=== PATIENT | female | born 1975 | race Caucasian/White ===

== ENCOUNTER 2017-10-24 21:55 | Emergency (ER) | payer SELFPAY ==
[~2017-10-24] VITALS: Ht 157.5 cm; Wt 110.0 kg
[2017-10-24 21:55] VITALS: BP 163/99
[2017-10-24] MEDS ORDERED: anxiety med PO (22:05)
[2017-10-24] MEDS ORDERED: thyroid medicine PO (22:05)
[2017-10-24] MEDS ORDERED: blood pressure med PO (22:05)
[2017-10-24] MEDS ORDERED: ADV100INH INH (22:07)
== END 2017-10-24 22:37 | disposition left against medical advice (07) ==
LOC: M ED 21:55
DX: Z53.29 Procedure and treatment not carried out because of patient's decision for other reasons (principal)

== ENCOUNTER 2018-04-12 21:11 | Emergency (ER) | payer OTHER, MEDICAID | END 2018-04-12 23:06 | disposition home or self-care (01) | LOC: M ED 21:11 | DX: M17.11 Unilateral primary osteoarthritis, right knee (principal); M25.561 Pain in right knee; X58.XXXA Exposure to other specified factors, initial encounter; Y92.099 Unspecified place in other non-institutional residence as the place of occurrence of the external cause; I10 Essential (primary) hypertension; J44.9 Chronic obstructive pulmonary disease, unspecified; F17.200 Nicotine dependence, unspecified, uncomplicated; Z79.899 Other long term (current) drug therapy; Z88.6 Allergy status to analgesic agent; Z88.5 Allergy status to narcotic agent; Z91.040 Latex allergy status | CPT/HCPCS: 73564 ==

== ENCOUNTER 2018-10-08 14:27 | Emergency (ER) | payer OTHER | END 2018-10-08 15:19 | disposition home or self-care (01) | LOC: M ED 14:27 | DX: M25.50 Pain in unspecified joint (principal); I10 Essential (primary) hypertension; Z88.5 Allergy status to narcotic agent; Z88.8 Allergy status to other drugs, medicaments and biological substances; Z91.040 Latex allergy status; F17.210 Nicotine dependence, cigarettes, uncomplicated | CPT/HCPCS: 99282 ==

== ENCOUNTER → 2018-10-13 | Outpatient (CLI) | payer OTHER, MEDICAID ==
[2018-10-13 12:06] LABS: ALBUMIN 3.5 GM/DL (3.2-5.2); ALBUMIN/GLOBULIN RATIO 1.06 (1.00-1.93); ALKALINE PHOSPHATASE 119 U/L (45-117); ALT/SGPT 25 U/L (12-78); ANION GAP 9 MEQ/L (8-16); AST/SGOT 13 U/L (7-37); BILIRUBIN,TOTAL 0.2 MG/DL (0.2-1.0); BLOOD UREA NITROGEN 16 MG/DL (7-18); CALCIUM LEVEL 8.5 MG/DL (8.5-10.1); CARBON DIOXIDE LEVEL 27 MEQ/L (21-32); CHLORIDE LEVEL 106 MEQ/L (98-107); CREATININE FOR GFR 0.68 MG/DL (0.55-1.30); GLOMERULAR FILTRATION RATE > 60.0 (>58); GLUCOSE, FASTING 127 MG/DL (70-100); POTASSIUM SERUM 4.2 MEQ/L (3.5-5.1); SODIUM LEVEL 142 MEQ/L (136-145); TOTAL PROTEIN 6.8 GM/DL (6.4-8.2)
[2018-10-13 12:47] LABS: FREE T4 0.93 NG/DL (0.76-1.46)
== END ==
LOC: M LAB 10:21
DX: E03.9 Hypothyroidism, unspecified (principal); M77.31 Calcaneal spur, right foot; M77.32 Calcaneal spur, left foot
CPT/HCPCS: 73630

== ENCOUNTER 2022-01-26 22:39 | Emergency (ER) | payer OTHER, MEDICAID ==
[~2022-01-26] VITALS: Ht 162.6 cm; Wt 121.8 kg
[2022-01-26 22:39] VITALS: BP 165/76
[~2022-01-26 22:39] MED LIST: ADV100INH INH; ADVI1CAP2 PO; ATOR1TAB19; HYDR-3715 PO; IBUP80TA PO; LEVO50TA5; LORA0.5T5 PO; PROM25TA12 PO; PROM50TA4 PO; VITA-122; anxiety med PO; blood pressure med PO; thyroid medicine PO
[2022-01-26] MEDS ORDERED: HYDR-3490 PO (22:44)
[2022-01-27] MEDS ORDERED: LISI20TA37 PO (17:11)
[2022-01-27] MEDS ORDERED: ALEV1TAB PO (17:11)
== END 2022-01-26 23:44 | disposition left against medical advice (07) ==
LOC: M ED 22:39
DX: Z53.21 Procedure and treatment not carried out due to patient leaving prior to being seen by health care provider (principal)

== ENCOUNTER 2022-01-27 12:08 | Inpatient (IN) | payer MEDICAID, OTHER ==
[~2022-01-27] VITALS: Ht 162.6 cm; Wt 122.2 kg
[~2022-01-27 12:08] MED LIST changes: +HYDR-3490 PO
[2022-01-27 14:10] LABS: BASO # 0.1 10^3/uL (0.0-0.2); BASO % 0.6 % (0.0-1.0); EOS # 0.2 10^3/uL (0.0-0.5); EOS % 1.7 % (0.0-3.0); HEMATOCRIT 42.1 % (36.0-47.0); HEMOGLOBIN 14.2 g/dl (12.0-15.5); LYMPH % 21.2 % (24.0-44.0); MEAN CORPUSCULAR HEMOGLOBIN 30.1 pg (27.0-33.0); MEAN CORPUSCULAR HGB CONC 33.7 g/dl (32.0-36.5); MEAN CORPUSCULAR VOLUME 89.2 fl (80.0-96.0); MONO % 7.4 % (2.0-8.0); NEUTROPHILS # 9.6 10^3/uL (1.5-8.5); NEUTROPHILS % 68.6 % (36.0-66.0); PLATELET COUNT, AUTOMATED 322 10^3/uL (150-450); RED BLOOD COUNT 4.72 10^6/uL (4.00-5.40)
[2022-01-27] MEDS ORDERED: ISOVUE-370 76% 100ML VIAL As Ordered ONE (14:20)
[2022-01-27] MEDS ORDERED: ONDANSETRON 4MG/2ML VIAL IV ONE (14:25)
[2022-01-27] MEDS ORDERED: KETOROLAC 30 MG/ML 1ML VIAL IV ONE (14:25)
[2022-01-27 14:52] LABS: ERYTHROCYTE SEDIMENTATION RATE 32 mm/hr (0-20)
[2022-01-27 14:55] LABS: C REACTIVE PROTEIN QUANTITATIV 1.24 MG/DL (0.00-0.30)
[2022-01-27] MEDS ORDERED: PIPERACILLIN/TAZOBACTAM SOD 3.375 GM in D5W MINI-BAG PLUS 50 ML IV ONE (17:00)
[2022-01-27] MEDS ORDERED: VANCOMYCIN HCL 1,000 MG, VIAL MATE ADAPTER 1 EACH in NS 250 ML IV SCH (17:10)
[2022-01-27] MEDS ORDERED: ALEV1TAB PO (17:11)
[2022-01-27] MEDS ORDERED: LISI20TA37 PO (17:11)
[2022-01-27] MEDS ORDERED: HOME MED LIST COMPLETE! XX SCH (17:15)
[2022-01-27] MEDS ORDERED: FIORICET TAB PO ONE (18:40)
[2022-01-27] MEDS ORDERED: ACETAMINOPHEN TAB 650MG DOSE (2X325MG) PO PRN (18:40)
[2022-01-27] MEDS ORDERED: PROMETHAZINE INJ 25 MG/ML VIAL (J2550) IV PRN (18:40)
[2022-01-27] MEDS ORDERED: RIZATRIPTAN BENZOATE 10 MG TAB PO PRN (18:45)
[2022-01-27 18:57] LABS: FREE THYROXINE INDEX 3.2 % (1.3-4.8); THYROID STIMULATING HORMONE 3.98 uIU/ML (0.358-3.740); THYROXINE (T4) 10.9 UG/DL (4.5-12.0)
[2022-01-27] MEDS: KETOROLAC 30 MG/ML 1ML VIAL IV SCH (20:51)
[2022-01-27] MEDS: METOCLOPRAMIDE INJ 10MG/2ML VIAL (J2765 PER 1) IV SCH (20:52)
[2022-01-27] MEDS: NS 1,000 ML IV SCH ×2 (20:54→22:18)
[2022-01-27] MEDS: amLODIPine 5 MG TAB PO SCH (20:55)
[2022-01-27 21:10] LABS: HEMOGLOBIN A1c 7.5 %
[2022-01-27] MEDS ORDERED: VANCOMYCIN HCL 1,000 MG, VIAL MATE ADAPTER 1 EACH in NS 250 ML IV ONE ×2 (22:00→23:00)
[2022-01-27 22:45] VITALS: BP 143/82
[2022-01-27] MEDS: HEPARIN SOD (PORCINE) 5000UNITS/ML 1ML VIAL/SYRINGE SQ SCH ×2 (23:12→23:20)
[2022-01-28] MEDS: PIPERACILLIN/TAZOBACTAM SOD 4.5 GM in D5W MINI-BAG PLUS 50 ML IV SCH ×3 (01:30→17:48)
[2022-01-28] MEDS: METOCLOPRAMIDE INJ 10MG/2ML VIAL (J2765 PER 1) IV SCH (01:30)
[2022-01-28] MEDS: KETOROLAC 30 MG/ML 1ML VIAL IV SCH ×2 (03:40→07:42)
[2022-01-28] MEDS ORDERED: VANCOMYCIN HCL 750 MG, VIAL MATE ADAPTER 1 EACH in NS 250 ML IV SCH ×3 (05:00→15:00)
[2022-01-28 06:00] VITALS: BP 138/92
[2022-01-28] MEDS ORDERED: VANCOMYCIN HCL 500 MG in D5W MINI-BAG PLUS 100 ML IV SCH (06:00)
[2022-01-28] MEDS: HEPARIN SOD (PORCINE) 5000UNITS/ML 1ML VIAL/SYRINGE SQ SCH ×2 (07:43→14:00)
[2022-01-28] MEDS: amLODIPine 5 MG TAB PO SCH (07:43)
[2022-01-28 08:06] LABS: BLOOD UREA NITROGEN 16 MG/DL (7-18); CALCIUM LEVEL 8.4 MG/DL (8.5-10.1); CARBON DIOXIDE LEVEL 23 MEQ/L (21-32); CHLORIDE LEVEL 105 MEQ/L (98-107); CREATININE FOR GFR 0.91 MG/DL (0.55-1.30); GLOMERULAR FILTRATION RATE > 60.0 (>58); GLUCOSE, FASTING 217 MG/DL (70-100); SODIUM LEVEL 133 MEQ/L (136-145)
[2022-01-28 08:56] LABS: BASO # 0.1 10^3/uL (0.0-0.2); BASO % 0.6 % (0.0-1.0); EOS # 0.2 10^3/uL (0.0-0.5); EOS % 1.6 % (0.0-3.0); HEMATOCRIT 38.4 % (36.0-47.0); HEMOGLOBIN 12.5 g/dl (12.0-15.5); LYMPH % 21.3 % (24.0-44.0); MEAN CORPUSCULAR HEMOGLOBIN 29.7 pg (27.0-33.0); MEAN CORPUSCULAR HGB CONC 32.6 g/dl (32.0-36.5); MEAN CORPUSCULAR VOLUME 91.2 fl (80.0-96.0); MONO # 1.1 10^3/uL (0.0-0.8); MONO % 7.6 % (2.0-8.0); NEUTROPHILS # 9.5 10^3/uL (1.5-8.5); NEUTROPHILS % 68.3 % (36.0-66.0); PLATELET COUNT, AUTOMATED 285 10^3/uL (150-450); RED BLOOD COUNT 4.21 10^6/uL (4.00-5.40); WHITE BLOOD COUNT 13.9 10^3/uL (4.0-10.0)
[2022-01-28] MEDS ORDERED: RIZATRIPTAN MLT 10 MG TAB PO ONE (10:10)
[2022-01-28] MEDS ORDERED: DEXTROSE 50% 50 ML SYRINGE IV PRN (10:20)
[2022-01-28] MEDS ORDERED: GLUCAGON INJ 1MG VIAL SC PRN (10:20)
[2022-01-28] MEDS ORDERED: GLUCOSE 4GM CHEW TABLET PO PRN (10:20)
[2022-01-28] MEDS: HumaLOG INSULIN (NovoLOG) PER UNIT SC SCH ×2 (12:00→16:32)
[2022-01-28] MEDS ORDERED: METOCLOPRAMIDE INJ 10MG/2ML VIAL (J2765 PER 1) IV SCH (12:00)
[2022-01-28] MEDS ORDERED: KETOROLAC 30 MG/ML 1ML VIAL IV SCH (12:00)
[2022-01-28] MEDS: NS 1,000 ML IV SCH (13:21)
[2022-01-28 13:23] VITALS: BP_SYST 123; BP_SYST 138; BP_DIAS 71; BP_DIAS 92
[2022-01-28 14:00] VITALS: BP 120/74
[2022-01-28] MEDS ORDERED: ISOSORBIDE DIN (ISORDIL) 10MG TAB PO SCH (14:00)
[2022-01-28] MEDS ORDERED: BACITAB PO (16:16)
[2022-01-28] MEDS ORDERED: AMOX875T2 PO (16:16)
[2022-01-28] MEDS ORDERED: LANC30MI TOP (16:21)
[2022-01-28] MEDS ORDERED: BLOO-76 MC (16:21)
[2022-01-28] MEDS ORDERED: METF500T13 PO (16:21)
[2022-01-28] MEDS ORDERED: ALCO1MED31 TP (16:21)
[2022-01-28] MEDS ORDERED: PHAR1TES VI (16:21)
[2022-01-28] MEDS ORDERED: HumaLOG INSULIN (NovoLOG) PER UNIT SC SCH (21:00)
== END 2022-01-28 19:15 | disposition home or self-care (01) | DRG 385 ==
LOC: M ED 12:08 → M ED INP 17:03 → ENRESERV 20:47 → M MS5PR 22:33
PROVIDERS: ADMIT General Practice; ATTEND General Practice
DX: R22.1 Localized swelling, mass and lump, neck (principal); E78.00 Pure hypercholesterolemia, unspecified; I10 Essential (primary) hypertension; J44.9 Chronic obstructive pulmonary disease, unspecified; R51.9 Headache, unspecified; E66.9 Obesity, unspecified; Z68.42 Body mass index [BMI] 45.0-49.9, adult; Z90.49 Acquired absence of other specified parts of digestive tract; Z90.79 Acquired absence of other genital organ(s); Z91.040 Latex allergy status; Z88.5 Allergy status to narcotic agent; F17.210 Nicotine dependence, cigarettes, uncomplicated; E11.9 Type 2 diabetes mellitus without complications; D35.1 Benign neoplasm of parathyroid gland; Z20.822 Contact with and (suspected) exposure to COVID-19; G47.30 Sleep apnea, unspecified